=== PATIENT | male | born 1965 | race Asian ===

== ENCOUNTER 2018-02-09 08:41 | Emergency (ER) | payer OTHER ==
--- NOTE | 2018-02-09 08:51 | EDPHY ---
H & P Time Seen by Provider: 02/09/18 08:45 HPI/ROS: CHIEF COMPLAINT: eye exposure HISTORY OF PRESENT ILLNESS: Patient is a 52-year-old man who was at work and he got some powder grit in his left eye . The material safety data sheet says that it is micro grit aluminum oxide. It says that it can cause slight irritation to the eyes. This appears to be mostly mechanical irritation. Patient states that about an hour ago he got some of the powder in his left eye. Is irritating and painful to him. It is not affecting his vision. REVIEW OF SYSTEMS: Constitutional: denies: chills, fever, recent illness, recent injury EENTM: See HPI denies: double vision, nose congestion Respiratory: denies: cough, shortness of breath Cardiac: denies: chest pain, irregular heart rate, lightheadedness, palpitations Gastrointestinal/Abdominal: denies: abdominal pain, diarrhea, nausea, vomiting, blood streaked stools Genitourinary: denies: dysuria, frequency, hematuria, pain Musculoskeletal: denies: joint pain, muscle pain Skin: denies: lesions, rash, jaundice, bruising Neurological: denies: headache, numbness, paresthesia, tingling, dizziness, weakness Hematologic/Lymphatic: denies: blood clots, easy bleeding, easy bruising Immunologic/allergic: denies: HIV/AIDS, transplant EXAM: GENERAL: Well-appearing, well-nourished and in no acute distress. HEAD: Atraumatic, normocephalic. EYES: Left eye painful, no erythema or discoloration, no visible foreign body, Pupils equal round and reactive to light, extraocular movements intact, sclera anicteric, conjunctiva are normal. PH 7 ENT: TMs normal, nares patent, oropharynx clear without exudates. Moist mucous membranes. NECK: Normal range of motion, supple without lymphadenopathy or JVD. LUNGS: Breath sounds clear to auscultation bilaterally and equal. No wheezes rales or rhonchi. HEART: Regular rate and rhythm without murmurs, rubs or gallops. ABDOMEN: Soft, nontender, normoactive bowel sounds. No guarding, no rebound. No masses appreciated. BACK: No CVA tenderness, no spinal tenderness, step-offs or deformities EXTREMITIES: Normal range of motion, no pitting or edema. No clubbing or cyanosis. NEUROLOGICAL: Cranial nerves II through XII grossly intact. Normal speech, normal gait. 5/5 strength, normal movement in all extremities, normal sensation PSYCH: Normal mood, normal affect. SKIN: Warm, dry, normal turgor, no visible rashes or lesions. Source: Patient Exam Limitations: Language barrier (Senior Budget Analyst used) - Personal History Current Tetanus/Diphtheria Vaccine: Yes - Medical/Surgical History Hx Asthma: No Hx Chronic Respiratory Disease: No Hx Diabetes: No Hx Cardiac Disease: Yes Hx Renal Disease: No Hx Cirrhosis: No Hx Alcoholism: No - Family History Significant Family History: No pertinent family hx - Social History Smoking Status: Never smoked Alcohol Use: Sober Drug Use: None Constitutional: Initial Vital Signs Temperature (C) 36.5 C 02/09/18 08:52 Heart Rate 85 02/09/18 08:52 Respiratory Rate 14 02/09/18 08:52 Blood Pressure 147/78 H 02/09/18 08:52 O2 Sat (%) 96 02/09/18 08:52 O2 Delivery Mode Room Air Allergies/Adverse Reactions: No Known Allergies Allergy (Verified 02/09/18 14:42) Home Medications: Medication Instructions Recorded Blood Pressure Medicine 02/09/18 Heart Medicine 02/09/18 Ibuprofen [Motrin (*)] 800 mg PO Q6-8PRN #10 tab 02/09/18 Medical Decision Making ED Course/Re-evaluation: 9:50 a.m. the patient is feeling much better after irrigation. He was stained with fluorescein. I do not see any abrasion or remaining foreign body. He is eager to go home. I encouraged him not to rub his eye. He understands and agrees with this plan. Differential Diagnosis: Partial list of the Differential diagnosis considered include but were not limited to; foreign body, corneal abrasion, chemical burn and although unlikely based on the history and physical exam, I also considered ulceration on the perforation, glaucoma. I discussed these differential diagnoses and the plan with the patient as well as the usual and expected course. The patient understands that the diagnosis is provisional and that in medicine we are not always correct and that further workup is often warranted. Usual and customary warnings were given. All of the patient's questions were answered. The patient was instructed to return to the emergency department should the symptoms at all worsen or return, otherwise to followup with the physician as we discussed. - Data Points Medications Given: Discontinued Medications Fluorescein Sodium/Benoxinate HCl (Flurox) 2 drops OP EDNOW ONE Stop: 02/09/18 09:26 Last Admin: 02/09/18 09:32 Dose: 2 drops Departure - Departure Disposition: Home, Routine, Self-Care Clinical Impression: Foreign body of left eye Qualifiers: Encounter type: initial encounter Qualified Code(s): T15.92XA - Foreign body on external eye, part unspecified, left eye, initial encounter Condition: Fair Instructions: Eye Foreign Body (ED) Referrals: NONE *PRIMARY CARE P,. [Primary Care Provider] - As per Instructions Richy Martini DO [Doctor of Osteopathy] - As per Instructions
[2018-02-09 09:03] VITALS: BP 147/78
[2018-02-09] MEDS ORDERED: FLUORESCEIN SOD/BENOXINATE HCL 20 DROPS/ML OPHT.BTL OP ONE (09:25)
== END 2018-02-09 09:58 | disposition home or self-care (01) ==
LOC: CED 08:41
DX: T15.92XA Foreign body on external eye, part unspecified, left eye, initial encounter (principal); X58.XXXA Exposure to other specified factors, initial encounter; Y92.69 Other specified industrial and construction area as the place of occurrence of the external cause; Y99.0 Civilian activity done for income or pay; Y93.89 Activity, other specified

== ENCOUNTER 2018-02-09 14:32 | Emergency (ER) | payer OTHER ==
[2018-02-09] MEDS ORDERED: PROPARACAINE 0.5% 15 ML OPHT DROP LEFTEYE ONE (14:49)
[2018-02-09] MEDS ORDERED: FLUORESCEIN SOD/BENOXINATE HCL 20 DROPS/ML OPHT.BTL OP ONE (14:55)
[2018-02-09] MEDS ORDERED: IBUPROFEN 800 MG TAB PO ONE (15:01)
[2018-02-09] MEDS ORDERED: OFLOXACIN 0.3% SOLN PREPACK OPHT.BTL TAKEHOME ONE (15:01)
--- NOTE | 2018-02-09 15:03 | EDPHY ---
H & P Stated Complaint: PT. states increased pain and swelling to left eye since 1200 today Time Seen by Provider: 02/09/18 15:03 HPI/ROS: HPI CHIEF COMPLAINT: Increased pain to left eye. Seen here earlier. HISTORY OF PRESENT ILLNESS: Patient is a 52-year-old male, [place]ian speaking only, asl interpreter was used for history review of systems, presents emergency room with increasing left eye irritation and watering. Patient was seen here earlier in the emergency room for chemical exposure to his left eye. He had micro granular aluminum oxide powder exposed to his eyes. Had irritation in his left eye. His eyes were irrigated had a normal pH earlier. He felt better and was discharged. He presents back to the emergency room with increasing left eye irritation. On fluorescein exam here in the emergency room with Wood's lamp there is an uptake or scratch at the 11:00 to 12:00 position. Pupils equal round react to light, conjunctiva slightly injected. Anterior chamber is normal. No flare. Globe intact in globe is soft. Unclear when he got his abrasion it is unclear if he has been rubbing his eye. Will placed on Ocuflox. Additionally ibuprofen 800 mg. With the asl interpreter I discussed exact details of treatment. He understands to place the eyedrops, ibuprofen for pain control. He understands not to rub his eye. Additionally I did make a follow-up appointment with him with Dr. Chairez with Ophthalmology. Because the patient is [place]ian speaking only I called and set up an appointment at 1 o'clock tomorrow. Past Medical History: Denies medical history Past Surgical History: Denies surgical history Social History: Denies drugs alcohol tobacco. Liberian speaking only. Family History: Noncontributory ROS REVIEW OF SYSTEMS: A comprehensive 10 point review of systems is otherwise negative aside from elements mentioned in the history of present illness. Exam Constitutional appears well nontoxic no acute distress triage nursing summary reviewed, vital signs reviewed, awake/alert. Eyes right eye normal, left eye the conjunctiva is injected, both were seen under Wood's lamp there is uptake at the 11:00 to 12:00 position. Small corneal abrasion present. Globe is intact. Anterior chamber normal. Extraocular movements intact. No proptosis. No surrounding cellulitis. Visual estrada intact. Visual acuity reviewed. No flare the chamber. Posterior eye exam without dilatation unremarkable. HENT normal inspection, atraumatic, moist mucus membranes, no epistaxis, neck supple/ no meningismus, no raccoon eyes. Respiratory clear to auscultation bilaterally, normal breath sounds, no respiratory distress, no wheezing. Cardiovascular rate normal, regular rhythm, no murmur, no edema, distal pulses normal. Gastrointestinal soft, non-tender, no rebound, no guarding, normal bowel sounds, no distension, no pulsatile mass. Genitourinary no CVA tenderness. Musculoskeletal no midline vertebral tenderness, full range of motion, no calf swelling, no tenderness of extremities, no meningismus, good pulses, neurovascularly intact. Skin pink, warm, & dry, no rash, skin atraumatic. Neurologic awake, alert and oriented x 3, AAOx3, moves all 4 extremities equally, motor intact, sensory intact, CN II-XII intact, normal cerebellar, normal vision, normal speech. Psychiatric normal mood/affect. Heme/Lymph/Immune no lymphadenopathy. Differential Diagnosis: Includes but is not limited to in a particular order chemical irritation, corneal abrasion, corneal tear, ulcer, foreign body, globe injury, glaucoma Medical Decision Making: Emergency room is patient has a corneal abrasion. Be placed on Ocuflox eyedrops, ibuprofen, cool compresses. Recommend not rubbing his eye. And he will have close ophthalmology follow-up tomorrow 1:00 p.m.. This is all been discussed explain with a [place] asl interpreter. He understands. Source: Patient - Medical/Surgical History Hx Asthma: No Hx Chronic Respiratory Disease: No Hx Diabetes: No Hx Cardiac Disease: Yes Hx Renal Disease: No Hx Cirrhosis: No Hx Alcoholism: No Other PMH: HTN. Angioplasty - Social History Smoking Status: Never smoked Constitutional: Initial Vital Signs Temperature (C) 37.0 C 02/09/18 14:42 Heart Rate 71 02/09/18 14:42 Respiratory Rate 16 02/09/18 14:42 Blood Pressure 122/73 H 02/09/18 14:42 O2 Sat (%) 94 02/09/18 14:42 O2 Delivery Mode Room Air Allergies/Adverse Reactions: No Known Allergies Allergy (Verified 02/09/18 14:42) Home Medications: Medication Instructions Recorded Blood Pressure Medicine 02/09/18 Heart Medicine 02/09/18 Ibuprofen [Motrin (*)] 800 mg PO Q6-8PRN #10 tab 02/09/18 Medical Decision Making - Data Points Medications Given: Discontinued Medications Fluorescein Sodium/Benoxinate HCl (Flurox) 2 drops OP EDNOW ONE Stop: 02/09/18 14:56 Last Admin: 02/09/18 14:55 Dose: 2 drops Departure - Departure Disposition: Home, Routine, Self-Care Clinical Impression: Corneal abrasion Qualifiers: Encounter type: initial encounter Laterality: left Qualified Code(s): S05.02XA - Injury of conjunctiva and corneal abrasion without foreign body, left eye, initial encounter Condition: Good Instructions: Corneal Abrasion (ED) Additional Instructions: 1. Do not rub your eye. 2. Antibiotics as prescribed. 3. Ibuprofen for pain. As prescribed. 4. Follow up with Ophthalmology tomorrow. You have an appointment at 1:00 p.m.. Referrals: Milan Chairez MD [Medical Doctor] - As per Instructions Prescriptions: Ibuprofen [Motrin (*)] 800 mg PO Q6-8PRN #10 tab
[2018-02-09 15:49] VITALS: BP 134/76
== END 2018-02-09 15:47 | disposition home or self-care (01) ==
LOC: CED 14:32
DX: S05.02XD Injury of conjunctiva and corneal abrasion without foreign body, left eye, subsequent encounter (principal); X58.XXXD Exposure to other specified factors, subsequent encounter